=== PATIENT | female | born 1960 | race Caucasian/White ===

== ENCOUNTER → 2018-04-30 | Outpatient (CLI) | payer OTHER, MEDICAID | LOC: FIMAGING 11:28 | PROVIDERS: ATTEND Neurological Surgery | DX: M51.26 Other intervertebral disc displacement, lumbar region (principal); M41.84 Other forms of scoliosis, thoracic region ==

== ENCOUNTER 2018-05-10 05:45 | Inpatient (IN) | payer OTHER, MEDICAID ==
[2018-05-10] MEDS ORDERED: fentaNYL 50 MCG in SYRINGE INTRATHECAL 1 SYR IT ONE (05:58)
[2018-05-10] MEDS ORDERED: ceFAZolin 2 GM/DEXTROSE 100 ML IV ONE (05:58)
[2018-05-10] MEDS ORDERED: ACETAMINOPHEN 500 MG TAB PO ONE (05:58)
[2018-05-10] MEDS ORDERED: GABAPENTIN 300 MG CAP PO ONE (05:58)
[2018-05-10] MEDS ORDERED: morphINE PF 0.2 MG in SYRINGE INTRATHECAL 1 SYR IT ONE (05:58)
[2018-05-10] MEDS ORDERED: LR 1,000 ML IV ONE (05:59)
[2018-05-10] MEDS ORDERED: LIDOCAINE 1% 2 ML INJ ID PRN (05:59)
[2018-05-10] MEDS ORDERED: TRANEXAMIC ACID 1,000 MG in NS (SYRINGE) 50 ML IV ONE (06:00)
[2018-05-10] MEDS ORDERED: *PREOP 1000MG*TRANEX ACID/NS 100 ML IV ONE (06:00)
[2018-05-10] MEDS ORDERED: MIDAZOLAM 2 MG/2 ML VIAL IVP ONE (06:49)
--- NOTE | 2018-05-10 06:49 | PDANEPAE ---
ANE History of Present Illness TLIF L4/5 ANE Past Medical History - Cardiovascular History Hx Hypertension: No Hx Arrhythmias: No Hx Chest Pain: No Hx Coronary Artery / Peripheral Vascular Disease: No Hx CHF / Valvular Disease: No Hx Palpitations: No - Pulmonary History Hx COPD: No Hx Asthma/Reactive Airway Disease: No Hx Recent Upper Respiratory Infection: No Hx Oxygen in Use at Home: No Hx Sleep Apnea: No Sleep Apnea Screening Result - Last Documented: Negative - Neurologic History Hx Cerebrovascular Accident: No Hx Seizures: No Hx Dementia: No - Endocrine History Hx Diabetes: No - Renal History Hx Renal Disorders: No - Liver History Hx Hepatic Disorders: No - Neurological & Psychiatric Hx Hx Neurological and Psychiatric Disorders: Yes Neurological / Psychiatric History Comment: PAIN TO RIGHT LEG - Cancer History Hx Cancer: No - Congenital Disorder History Hx Congenital Disorders: No - GI History Hx Gastrointestinal Disorders: No - Other Health History Other Health History: none - Chronic Pain History Chronic Pain: No - Surgical History Prior Surgeries: SPINAL SURGERY 05/13/17 ANE Review of Systems Review of systems is: negative Review of Systems: - Exercise capacity METS (RN): 4 METS ANE Patient History - Allergies Allergies/Adverse Reactions: No Known Allergies Allergy (Verified 05/10/18 06:33) - Home Medications Home medications: home medication list seen and reviewed Home Medications: Atorvastatin Calcium 05/03/18 [Last Taken 05/09/18 08:00] Gabapentin 05/03/18 [Last Taken 05/09/18 08:00] Tramadol HCl 05/03/18 [Last Taken 05/09/18 22:00] Lipitor 20 mg (*) 05/10/18 [Last Taken 05/09/18 08:00] - NPO status NPO Status: no food or drink >8 hours NPO Since - Liquids (Date): 05/09/18 NPO Since - Liquids (Time): 19:00 NPO Since - Solids (Date): 05/09/18 NPO Since - Solids (Time): 19:00 - Anes Hx Anes Hx: no prior problems - Smoking Hx Smoking Status: Never smoked - Family Anes Hx Family Anes Hx: none Family Hx Anesthesia Complications: NONE ANE Labs/Vital Signs - Vital Signs Vital Signs: reviewed preoperatively; see RN documention for details Blood Pressure: 124/64 Heart Rate: 72 Respiratory Rate: 18 O2 Sat (%): 96 Height: 154.94 cm Weight: 76.204 kg ANE Physical Exam - Airway Neck exam: FROM Mallampati Score: Class 3 Mouth exam: normal dental/mouth exam - Pulmonary Pulmonary: no respiratory distress - Cardiovascular Cardiovascular: regular rate and rhythym - ASA Status ASA Status: II ANE Anesthesia Plan Anesthesia Plan: general endotracheal anesthesia
[2018-05-10] MEDS ORDERED: CHLORHEXIDINE GLUC HIBICLENS 118 ML BTL TP ONE (06:55)
[2018-05-10] MEDS ORDERED: BUPIVACAINE 0.25% 30 ML SDV ONE (06:55)
[2018-05-10] MEDS ORDERED: BACITRACIN 50,000 UNITS/10 ML SYR IRR ONE (06:56)
[2018-05-10] MEDS ORDERED: EPINEPHrine 1 MG/ML INJ ONE (06:56)
[2018-05-10] MEDS ORDERED: MIDAZOLAM 2 MG/2 ML VIAL ONE (07:00)
--- NOTE | 2018-05-10 07:03 | PDHPUP ---
History & Physical Update H&P update statement: This history and physical update is based on an assessment of the patient which was completed after admission or registration (within 24 hours), but prior to the surgery/procedure. H&P update: H&P reviewed & patient examined, no change in patient's condition since H&P completed
[2018-05-10] MEDS ORDERED: ONDANSETRON 4 MG/2 ML VIAL ONE (07:07)
[2018-05-10] MEDS ORDERED: ROCURONIUM 50 MG/5 ML VIAL ONE (07:07)
[2018-05-10] MEDS ORDERED: fentaNYL 100 MCG/2 ML INJ ONE (07:07)
[2018-05-10] MEDS ORDERED: LIDOCAINE 2% 100 MG/5 ML SYR ONE (07:07)
[2018-05-10] MEDS ORDERED: HYDROmorphONE/DILAUDID 2 MG/ML INJ ONE (07:07)
[2018-05-10] MEDS ORDERED: REMIFENTANIL HCL 1 MG VIAL ONE (07:07)
[2018-05-10] MEDS ORDERED: DEXAMETHASONE 4 MG/ML VIAL ONE (07:07)
[2018-05-10] MEDS ORDERED: PROPOFOL/EMULSION 500 MG/50 ML BOTTLE IV ONE (07:08)
[2018-05-10] MEDS ORDERED: PROPOFOL 200 MG/20 ML VIAL ONE (07:08)
[2018-05-10] MEDS ORDERED: THROMBIN (BOVINE) 5,000 UNIT VIAL TP ONE (07:30)
[2018-05-10] MEDS ORDERED: fentaNYL 100 MCG/2 ML INJ IVP PRN (09:13)
[2018-05-10] MEDS ORDERED: ONDANSETRON 4 MG/2 ML VIAL IVP PRN ×2 (09:13→10:16)
[2018-05-10] MEDS ORDERED: DIAZEPAM 5 MG/ML 1 ML SYR IVP PRN (09:13)
[2018-05-10] MEDS ORDERED: NALOXONE HCL 0.4 MG/ML INJ IVP PRN ×2 (09:13→10:16)
[2018-05-10] MEDS ORDERED: HYDROCODONE/APAP 5/325 TAB PO PRN (09:13)
[2018-05-10] MEDS ORDERED: oxyCODONE IR 5 MG TAB PO PRN ×2 (09:13→10:16)
[2018-05-10] MEDS ORDERED: LABETALOL HCL 5 MG/ML 20 ML MDV IVP PRN (09:13)
[2018-05-10] MEDS ORDERED: PROMETHAZINE HCL 25 MG/ML INJ IVP PRN (09:13)
[2018-05-10] MEDS ORDERED: DEXAMETHASONE 4 MG/ML VIAL IVP PRN (09:13)
[2018-05-10] MEDS ORDERED: MEPERIDINE 25 MG/0.5 ML AMP IVP PRN (09:13)
[2018-05-10] MEDS ORDERED: HYDROmorphONE/DILAUDID 1 MG/ML INJ IVP PRN (09:13)
--- NOTE | 2018-05-10 09:15 | POSTANESTH ---
Post Anesthetic Evaluation Cardiovascular Status: Normal, Stable, Similar to Pre-Op Cond Respiratory Status: Normal, Stable, Similar to Pre-op Cond. Level of Consciousness/Mental Status: Can Participate in Eval, Mildly Sleepy, Arousable Pain Control: Adequate, Prn Tx Ordered Nausea/Vomiting Control: Adequate, Prn Tx Ordered Complications Possibly Related to Anesthesia: None Noted
[2018-05-10] MEDS ORDERED: METHOCARBAMOL 750 MG TAB PO PRN (10:16)
[2018-05-10] MEDS ORDERED: ONDANSETRON DISINTEGRATING 4 MG TAB PO PRN (10:16)
[2018-05-10] MEDS ORDERED: diphenhydrAMINE 25 MG CAP PO PRN (10:16)
[2018-05-10] MEDS ORDERED: BISACODYL 10 MG SUPP PR PRN (10:16)
[2018-05-10] MEDS ORDERED: LACTULOSE 20 GM/30 ML UDCUP PO PRN (10:16)
[2018-05-10] MEDS ORDERED: morphINE PCA 30 MG/30 ML PCA IV PRN (10:16)
[2018-05-10] MEDS ORDERED: MAGNESIUM HYDROXIDE 30 ML UDCUP PO PRN (10:16)
--- NOTE | 2018-05-10 10:23 | SOAPPROG ---
SOAP Progress Note Assessment/Plan: Assessment: 57 yo F sp L4/5 TLIF Plan: stable PT/OT LSO brace when out of bed lovenox starts POD #1 please call with neuro changes 05/10/18 10:22 Subjective: + back pain, no leg pain Objective: Vital Signs Temp Pulse Resp BP Pulse Ox 36.5 C 72 18 124/64 H 96 05/10/18 06:20 05/10/18 06:55 05/10/18 06:55 05/10/18 06:55 05/10/18 06:55 somnolent PERRL, no facial droop CHEY x 4 + light touch ICD10 Worksheet Patient Problems: Problems Problem Status Onset Fusion of spine of lumbar region Acute - ICD10 Problem Qualifiers (1) Fusion of spine of lumbar region
--- NOTE | 2018-05-10 10:25 | POSTOPPROG ---
Post Op Note Date of Operation: 05/10/18 Surgeon: Nikita Steel Physicians Assistant: Agapito Anesthesiologist: FELIPE Anesthesia: GET(General Endotracheal) Pre-op Diagnosis: L4/5 spondylolisthesis Post-op Diagnosis: same Indication: low back pain, right leg pain Procedure: L4/5 TLIF Findings: DJD Inf/Abcess present in the surg proc area at time of surgery?: No EBL: 50-100 Complications: None Drains: Ron Cueva
[2018-05-10] MEDS ORDERED: DIAZEPAM 5 MG TAB PO PRN (10:26)
[2018-05-10] MEDS ORDERED: NS 1,000 ML IV SCH (10:30)
--- NOTE | 2018-05-10 10:30 | GOP ---
[f rep st] OPERATIVE REPORT DATE OF OPERATION: 05/10/2018 SURGEON: Nikita Steel MD NEUROSURGEON: Nikita Steel MD PHOTOGRAPHER SCIENTIFIC: Ben Altman PA-C. ANESTHESIA: General endotracheal. PREOPERATIVE DIAGNOSIS: 1. Severe L4-5 degenerative disk disease and lateral recess with neural foraminal encroachment. 2. Intractable low back pain. 3. Right lower extremity radiculopathy. 4. Failed conservative care. 5. 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 POSTOPERATIVE DIAGNOSIS: 1. Severe L4-5 degenerative disk disease and lateral recess with neural foraminal encroachment. 2. Intractable low back pain. 3. Right lower extremity radiculopathy. 4. Failed conservative care. 5. 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 PROCEDURE PERFORMED: Redo right-sided L4-5 far lateral transpedicular decompression with L4-5 tractor operator helper ior nonsegmental (pedicle screw) fixation and posterolateral fusion with local autograft, bone morpho genic protein, and morselized allograft. L4-5 posterior/transforaminal lumbar interbody fusion with 2 structural PEEK interbody spacers, local autograft, and bone morphogenic protein. Use of intraoper ative microscopy, fluoroscopy, and computer volumetric stereotactic navigation with intraoperative ne urophysiologic testing. Injection of intrathecal narcotic analgesics for postoperative pain control. FINDINGS: ESTIMATED BLOOD LOSS: 75 mL INDICATIONS: The patient is a 57-year-old woman with intractable low back pain and right lower extre mity radicular symptoms secondary to severe disk degeneration and collapse and neural foraminal and l ateral recess impingement at the L4-5 level. She has failed extensive conservative care and has had prior surgery at this level. After multiple detailed discussions and examinations as well as reviewi ng all of the situation with the communications tech present prior to surgery, the patient wishes to proceed with surgical intervention and understands there is no guarantee for good outcome and she could be wo rse after surgery. DESCRIPTION OF PROCEDURE: After informed consent was obtained, patient was taken to the operating ro om and placed in the prone position on the Ron table. The lumbosacral area was prepped and drape d in sterile fashion. After fluoroscopic localization of the correct levels, the subcutaneous and in tramuscular tissues were infiltrated with local anesthesia. A midline linear incision was then creat ed over the L4-5 spinous processes. This was carried down to fascial layer which was incised using m onopolar electrocautery and carried to subperiosteal plane along the spinous processes and lamina gertrude aterally. Intraoperative fluoroscopy was again utilized to verify the correct levels. Following thi s, a right-sided redo posterior hemilaminectomy was performed with complete unroofing of the facet calin int and far lateral transpedicular decompression. There was quite a bit of scar tissue that was meti culously dissected out under high-power microscopy. Following adequate decompression, the PingSome uronavigational system was brought in. Using computer volumetric stereotactic navigation, pedicle sc rews were placed at L4 and L5 bilaterally. Each individual screw was tested neurophysiologically wit h monopolar electrostimulation and interpretation of the potentials by the surgeon. The rods were th en placed and secured under distraction, during which time a complete diskectomy was performed with p reparation of the endplates and placement of 2 structural PEEK interbody spacers, local autograft, an d bone morphogenic protein for an L4-5 posterior/transforaminal lumbar interbody fusion. The screw a nd angelica system were then placed in a slight amount of compression in order to facilitate bony union an d to minimize the potential for posterior graft migration. Following re-verification of good positio n of the screws, rods, and interbody spacers using biplanar fluoroscopy, a drain was placed. The sub cutaneous and intramuscular tissues were re-infiltrated with local anesthesia. 200 mcg of Duramorph along with 50 mcg of fentanyl were injected intrathecally for postoperative pain control. The remain ing facet joint and lamina on the left side were extensively decorticated, and the residual local aut ograft along with bone morphogenic protein and morselized autograft were placed out laterally for pos terolateral fusion. The wound was then closed in a layered fashion using interrupted Vicryl sutures followed by Steri-Strips on the skin. COMPLICATIONS: None. DISPOSITION: The patient is currently in the process of being repositioned for extubation. /[id number]/MODL
--- NOTE | 2018-05-10 11:04 | PDMN ---
Medical Necessity Medical necessity: IP surgery per [facility] cpt 51835
[2018-05-10] MEDS ORDERED: HYDROmorphONE/DILAUDID 1 MG/ML INJ ONE (11:35)
[2018-05-10] MEDS ORDERED: oxyCODONE IR 5 MG TAB ONE (11:44)
[2018-05-10] MEDS ORDERED: PHENYLEPHRINE HCL 100 MCG/ML SYR ONE (13:16)
[2018-05-10] MEDS: ACETAMINOPHEN 500 MG TAB PO SCH ×2 (13:58→21:30)
[2018-05-10] MEDS: GABAPENTIN 300 MG CAP PO SCH ×2 (13:59→21:29)
[2018-05-10] MEDS: ceFAZolin 2 GM/DEXTROSE 100 ML IV SCH ×2 (13:59→21:36)
[2018-05-10] MEDS: POLYETHYLENE GLYCOL 3350 17 GM PKT PO SCH ×2 (16:01→21:29)
[2018-05-10] MEDS: SENNOSIDES/DOCUSATE SODIUM TAB PO SCH (21:29)
[2018-05-10] MEDS: FAMOTIDINE 20 MG TAB PO SCH (21:30)
[2018-05-10] MEDS: morphINE SR 30 MG TAB PO SCH (21:30)
[2018-05-11 05:27] LABS: PLATELET COUNT 151 10^3/uL (150-400)
[2018-05-11] MEDS: GABAPENTIN 300 MG CAP PO SCH ×3 (05:47→21:55)
[2018-05-11] MEDS: ACETAMINOPHEN 500 MG TAB PO SCH ×3 (05:50→21:53)
--- NOTE | 2018-05-11 09:43 | SOAPPROG ---
SOAP Progress Note Assessment/Plan: Assessment: 57 yo F POD #1 L4/5 TLIF Plan: stable and doing well overall :) PT/OT LSO brace when out of bed scd/josé miguel/lovenox for dvt prophylaxis YUN x 1 x-rays today likely dc home 05/12/18 please call with neuro changes discussed with DR Medrano 05/10/18 10:22 05/11/18 09:42 Subjective: back pain improving, no leg pain, no weakness. Objective: Vital Signs Temp Pulse Resp BP Pulse Ox 37.0 C 66 18 94/58 L 98 05/11/18 08:00 05/11/18 08:00 05/11/18 08:00 05/11/18 08:00 05/11/18 08:00 Laboratory Results 05/11/18 04:51 05/11/18 04:51 05/10/18 05/11/18 05/12/18 05:59 05:59 05:59 Intake Total 3271 300 Output Total 105 500 Balance 3166 -200 AAOx4, +FC PERRL, EOMI, no facial droop CHEY x4 + light touch C/D/I ICD10 Worksheet Patient Problems: Problems Problem Status Onset Fusion of spine of lumbar region Acute - ICD10 Problem Qualifiers (1) Fusion of spine of lumbar region
[2018-05-11] MEDS: ENOXAPARIN 40 MG/0.4 ML SYR SC SCH (09:52)
[2018-05-11] MEDS: LISINOPRIL/HCTZ 10/12.5 MG 1 EA TAB PO SCH (09:52)
[2018-05-11] MEDS: FAMOTIDINE 20 MG TAB PO SCH ×2 (09:52→21:55)
[2018-05-11] MEDS: ATORVASTATIN CALCIUM 10 MG TAB PO SCH (09:52)
[2018-05-11] MEDS: POLYETHYLENE GLYCOL 3350 17 GM PKT PO SCH ×3 (09:53→21:56)
[2018-05-11] MEDS: SENNOSIDES/DOCUSATE SODIUM TAB PO SCH ×2 (10:02→21:56)
[2018-05-11] MEDS: morphINE SR 15 MG TAB PO SCH ×2 (10:02→21:55)
[2018-05-11] MEDS: morphINE SR 30 MG TAB PO SCH (10:20)
--- NOTE | 2018-05-11 16:24 | ASMTCMCOM ---
CM Note CM Note Notes: Pt s/p L4/5 TLIF. PT rec home, OT eval pending. Pt likely d/c independent with family assist. CM to follow. Date Signed: 05/11/2018 04:23 PM Electronically Signed By:ELA Powers
[2018-05-12] MEDS: ACETAMINOPHEN 500 MG TAB PO SCH ×2 (05:51→12:32)
[2018-05-12] MEDS: GABAPENTIN 300 MG CAP PO SCH ×2 (05:52→12:32)
--- NOTE | 2018-05-12 07:31 | GHP ---
[f rep st] NEUROSURGICAL PROGRESS NOTE DATE OF ADMISSION: 05/10/2018 PHYSICAL EXAMINATION: The patient was seen and examined and is awake, alert, and moving all her extremities well. Her dressing is clean and dry. PLAN: She will continue with physical therapy today, and we will plan for discharge. /[id number]/MODL MTDD
[2018-05-12] MEDS ORDERED: NS 1,000 ML IV ONE (08:00)
[2018-05-12] MEDS: POLYETHYLENE GLYCOL 3350 17 GM PKT PO SCH (09:00)
[2018-05-12] MEDS: morphINE SR 15 MG TAB PO SCH (09:00)
[2018-05-12] MEDS: FAMOTIDINE 20 MG TAB PO SCH (09:00)
[2018-05-12] MEDS: ATORVASTATIN CALCIUM 10 MG TAB PO SCH (09:00)
[2018-05-12] MEDS: ENOXAPARIN 40 MG/0.4 ML SYR SC SCH (09:00)
[2018-05-12] MEDS: SENNOSIDES/DOCUSATE SODIUM TAB PO SCH (09:00)
[2018-05-12] MEDS: LISINOPRIL/HCTZ 10/12.5 MG 1 EA TAB PO SCH (09:37)
--- NOTE | 2018-05-12 11:22 | ASMTLACE ---
TREVORE Length of stay for Answers: 2 days current admission Acuity / Level of Answers: Yes Care: Did the patient have an inpatient admission? Comorbidities - select Answers: Opioid dependence all that apply / Chronic pain # of Emergency department Answers: 0 visits in the last 6 months Score: 9 Date Signed: 05/12/2018 11:21 AM Electronically Signed By:Arabella Hogan RN
[2018-05-12 11:25] VITALS: BP 99/56
--- NOTE | 2018-05-12 17:29 | ASDISCHSUM ---
Discharge Information Plan Status:Home with No Needs Medically Cleared to Leave:05/12/2018 Discharge Date:05/12/2018 03:45 PM CM D/C Disposition:Home, Routine, Self-Care ADT D/C Disposition:Home, Routine, Self-Care Projected Discharge Date:05/12/2018 03:45 PM Transportation at D/C:Family Discharge Delay Reason: Follow-Up Date:05/12/2018 03:45 PM Discharge Slot:2 - 12:01 pm - 18:00 pm Final Diagnosis:Scoliosis, degenerative disc disease, s/p L4/5 TLIF Placement Information Patient Contact Information Contact Name:TOSHIA Relationship:Daughter Address: Work Phone: City: [facility] Phone: [facility] Code: Email: Financial Information Financial Class:Medicare Primary Plan Desc:MEDICARE INPATIENT Primary Plan Number:[id number] Secondary Plan Desc:MED[place] Secondary Plan Number:[id number] Assessment Information LACE LACE Length of stay for Answers: 2 days current admission Acuity / Level of Answers: Yes Care: Did the patient have an inpatient admission? Comorbidities - select Answers: Opioid dependence all that apply / Chronic pain # of Emergency department Answers: 0 visits in the last 6 months Score: 9 Date Signed: 05/12/2018 11:21 AM Electronically Signed By:Arabella Hogan RN [facility] CM Progress Note CM Note CM Note Notes: Pt s/p L4/5 TLIF. PT rec home, OT eval pending. Pt likely d/c independent with family assist. CM to follow. Date Signed: 05/11/2018 04:23 PM Electronically Signed By:ELA Powers Case Management Discharge Plan Note Case Management Discharge Discharge Order Complete? Answers: Yes Patient to Obtain Answers: via Family Medications Transportation Arranged Answers: Family/Friends Transport will Pick (Date 05/12/2018 12:00 AM & Time) EMTALA Complete Answers: No Notes: N/A Case Management Transport Answers: No Notes: N/A Form Complete Faxed Final Orders Answers: No Notes: N/A Agency/Facility Transfer Answers: No Notes: N/A Report Printed & Faxed to Receiving Agency Family Notified Answers: Yes Notes: At bedside Discharge Comments Notes: Reviewed chart regarding discharge plan of care, pt's progress. Per MD notes, pt to continue PT today and to discharge home independently with family support and no identified needs. PT recommends a front wheeled walker. OT cleared. Pt Kazakh speaking, awaiting certified court/medical interpreter for IM signature. Pt to follow up as directed. CM available for any further issues or concerns. Discharge Plan: Home independently with family support Date Signed: 05/12/2018 11:26 AM Electronically Signed By:Arabella Hogan RN Intervention Information
--- NOTE | 2018-05-26 14:24 | GDS ---
[f rep st] DISCHARGE SUMMARY ADMISSION DIAGNOSIS: Lumbar degenerative joint disease and stenosis. DISCHARGE DIAGNOSIS: Status post L4-5 transforaminal lumbar interbody fusion. HISTORY AND PHYSICAL: Please see admission history and physical. HOSPITAL COURSE: Patient is a 57-year-old female who presented with low back pain and right lower ex tremity radicular symptoms. She was found to have severe lumbar degenerative joint disease and steno sis. She was taken to the operating room on 05/10/2018, where she underwent an L4-5 transforaminal l umbar interbody fusion. There were no intraoperative complications, and she was admitted to the [facility] for observation. On the floor, she was tolerating a regular diet, and her pain was controlled with p.o. pain medications. Postoperative imaging showed good position of the hardware. She was dischar [facility] in stable condition on 05/12/2018. Patient was discharged with lumbar fusion instructions a nd recommended she return for a neurosurgical followup appointment in approximately 2 weeks. /[id number]/MODL
== END 2018-05-12 15:45 | disposition home or self-care (01) | DRG 455 ==
LOC: F3N 05:45
PROVIDERS: ADMIT Neurological Surgery; ATTEND Neurological Surgery
DX: M51.36 Other intervertebral disc degeneration, lumbar region (principal); M54.16 Radiculopathy, lumbar region
CPT/HCPCS: 97116-GP; 97161-GP; 97166-GO; 97530-GP; 97535-GO; C1713; C1762; G8978-GP-CJ; G8979-GP-CI; G8980-GP-CI; G8987-GO-CJ; G8988-GO-CI; G8989-GO-CI; J0171; J0690; J1100; J1170; J1650; J2001; J2250; J2274; J2370; J2405; J2704; J3010